=== PATIENT | male | born 1955 | race Caucasian/White ===

== ENCOUNTER 2019-05-20 11:18 | Emergency (ER) | payer BC ==
[2019-05-20 11:34] VITALS: BP 110/67; PULSE 67; RESP 18; TEMP 97.9
--- NOTE | 2019-05-20 11:57 | ED ---
General Adult HPI - General Chief complaint: Extremity Injury, Upper Stated complaint: fall, rt arm injury Time Seen by Provider: 05/20/19 11:36 Source: patient, RN notes reviewed Mode of arrival: ambulatory Limitations: no limitations - History of Present Illness Initial comments: Patient is a pleasant 63-year-old male presenting to the emergency Department with complaints of right forearm swelling. Patient did have a fall and landed on his right forearm. Patient has noticed swelling. Patient is on Coumadin with history of atrial fibrillation. Patient does have an abrasion. Last tetanus immunization is less than 5 years. Patient denies any head injury or loss of consciousness. No neck or back pain. No chest pain or dyspnea. No abdominal pain. Patient denies any area of injury other than the forearm. Patient states discomfort is mild. - Related Data Home Medications Medication Instructions Recorded Confirmed Aspirin [[place] Aspirin EC] 81 mg PO DAILY 05/20/19 05/20/19 Ezetimibe [Zetia] 10 mg PO DAILY 05/20/19 05/20/19 Pitavastatin Calcium [Livalo] 4 mg PO DAILY 05/20/19 05/20/19 Sotalol [Betapace] 80 mg PO BID 05/20/19 05/20/19 Warfarin [Coumadin] 2.5 mg PO TU 05/20/19 05/20/19 Warfarin [Coumadin] 3.75 mg PO SUMOWETHFRSA 05/20/19 05/20/19 Allergies Allergy/AdvReac Type Severity Reaction Status Date / Time No Known Allergies Allergy Verified 05/20/19 11:52 Review of Systems ROS Statement: Those systems with pertinent positive or pertinent negative responses have been documented in the HPI. ROS Other: All systems not noted in ROS Statement are negative. Constitutional: Denies: fever Eyes: Denies: eye pain ENT: Denies: ear pain Respiratory: Denies: dyspnea Cardiovascular: Denies: chest pain Endocrine: Denies: fatigue Gastrointestinal: Denies: abdominal pain Genitourinary: Denies: dysuria Musculoskeletal: Denies: back pain Skin: Reports: as per HPI Neurological: Denies: weakness Past Medical History Past Medical History: Atrial Fibrillation, Hyperlipidemia, Hypertension History of Any Multi-Drug Resistant Organisms: None Reported Past Surgical History: Coronary Bypass/CABG Additional Past Surgical History / Comment(s): pacemaker Past Psychological History: No Psychological Hx Reported Smoking Status: Never smoker Past Alcohol Use History: None Reported Past Drug Use History: None Reported General Exam Limitations: no limitations General appearance: alert, in no apparent distress Head exam: Present: atraumatic Eye exam: Present: normal appearance, PERRL ENT exam: Present: normal oropharynx Neck exam: Present: normal inspection. Absent: tenderness Respiratory exam: Present: normal lung sounds bilaterally Cardiovascular Exam: Present: regular rate, normal rhythm. Absent: irregular rhythm Expanded Peripheral pulses: 2+: Radial (R) GI/Abdominal exam: Present: soft. Absent: tenderness Extremities exam: Present: other (Right proximal forearm swelling on the ulnar side approximately 4 x 6 cm with abrasions. No bony tenderness. Distally the extremity is neurovascularly intact.) Neurological exam: Present: alert. Absent: motor sensory deficit Expanded Motor strength exam: RUE: 5 Psychiatric exam: Present: normal affect, normal mood Skin exam: Present: abrasion Course Vital Signs 05/20/19 11:32 Temperature 97.9 F Pulse Rate 67 Respiratory 18 Rate Blood Pressure 110/67 O2 Sat by Pulse 96 Oximetry Medical Decision Making - Medical Decision Making Patient reevaluated and updated. - Lab Data Lab Results 05/20/19 Range/Units 12:15 PT 33.3 H (9.0-12.0) sec INR 3.5 H (<1.2) APTT 38.1 H (22.0-30.0) sec Disposition Clinical Impression: Traumatic hematoma of right forearm Disposition: HOME SELF-CARE Condition: Stable Instructions (If sedation given, give patient instructions): Hematoma (ED) Additional Instructions: Please hold Coumadin tomorrow. Please have your INR level checked within the next week. Return for increased swelling, other areas of swelling or bleeding, hand problems, worsening symptoms or other concerns. Is patient prescribed a controlled substance at d/c from ED?: No Referrals: Josh Quinn MD [Primary Care Provider] - 1-2 days Time of Disposition: 13:42
[2019-05-20 13:18] LABS: INR 3.5 (<1.2); Partial Thromboplastin Time 38.1 sec (22.0-30.0); Prothrombin Time 33.3 sec (9.0-12.0)
== END 2019-05-20 13:52 | disposition home or self-care (01) ==
LOC: EC 11:18 → SUPCPDRO 11:18 → EC 13:52
DX: S50.11XA Contusion of right forearm, initial encounter (principal); I48.91 Unspecified atrial fibrillation; E78.5 Hyperlipidemia, unspecified; I10 Essential (primary) hypertension; Z79.82 Long term (current) use of aspirin; Z79.01 Long term (current) use of anticoagulants; Z79.899 Other long term (current) drug therapy; Z95.0 Presence of cardiac pacemaker; Z95.1 Presence of aortocoronary bypass graft; W19.XXXA Unspecified fall, initial encounter
CPT/HCPCS: 36415; 85610; 85730; 99283